=== PATIENT | female | born 1995 | race Caucasian/White ===

== ENCOUNTER 2020-01-29 19:23 | Emergency (ER) | payer BC ==
--- NOTE | 2020-01-29 19:41 | EDM.PDOC ---
ED HPI GENERAL MEDICAL PROBLEM - General Chief Complaint: ENT Problem Stated Complaint: NOSE BLEEDING OFF/ON FOR 4 HRS Time Seen by Provider: 01/29/20 19:35 - History of Present Illness INITIAL COMMENTS - FREE TEXT/NARRATIVE: 24-year-old female presents the emergency room with a nosebleed. This is been going on for the last 4 hours it is on and off. Usually starts on the right side and occasionally comes over to the left side. She tries holding her nose together and holds until it stops bleeding and this helps some however it restarts bleeding. The patient does not have a underlying bleeding disorder and does not have recurrent problems with nosebleeds. She denies significant medical problems at this time.. - Related Data Allergies Allergy/AdvReac Type Severity Reaction Status Date / Time No Known Allergies Allergy Verified 01/29/20 19:32 Home Meds: Home Meds Control 1 tab PO ASDIRECTED 01/29/20 [History] ED ROS ENT - Review of Systems Review Of Systems: See Below Constitutional: Reports: No Symptoms HEENT: Reports: Nosebleed Respiratory: Reports: No Symptoms Cardiovascular: Reports: No Symptoms GI/Abdominal: Reports: No Symptoms ED EXAM, ENT - Physical Exam Exam: See Below Exam Limited By: No Limitations General Appearance: Alert, No Apparent Distress Nose: Normal Inspection, Active Bleeding, Other (The patient had 1 is plastic nose clamps on was holding the bottom of her nose with Kleenex when I arrived. Disassembled all this and had her blow her nose several times into a moist towel. After this and showed her the proper way to hold her nose together and will have her hold her nose for 15 minutes.) Mouth/Throat: Normal Inspection, Normal Gums, Normal Lips, Normal Oropharynx, Other (No active bleeding seen down the back of the throat). No: Bleeding Head: Atraumatic, Normocephalic Neck: Normal Inspection, Supple, Non-Tender, Full Range of Motion. No: Lymphadenopathy (L), Lymphadenopathy (R) Respiratory/Chest: No Respiratory Distress, Lungs Clear, Normal Breath Sounds Cardiovascular: Regular Rate, Rhythm, No Edema, No Murmur Course - Vital Signs Last Recorded V/S: Last Vital Signs Temp 36.2 C 01/29/20 19:37 Pulse 112 H 01/29/20 19:37 Resp 18 01/29/20 19:37 BP 154/93 H 01/29/20 19:37 Pulse Ox 100 01/29/20 19:37 - Orders/Labs/Meds Meds: Medications Discontinued Medications Generic Name Dose Route Start Last Admin Trade Name Latha PRN Reason Stop Dose Admin Oxymetazoline HCl 1 ml 01/29/20 19:47 01/29/20 20:02 Nasal Decongestant [place] SAMI 01/29/20 19:48 Not Given ONETIME ONE Phenylephrine HCl Confirm 01/29/20 20:00 01/29/20 20:01 Camron-Synephrine 0.5% Regular Nasal [place] Administered 01/29/20 20:01 Not Given Dose 15 ml .ROUTE .STK-MED ONE Phenylephrine HCl 2.5 ml 01/29/20 20:01 01/29/20 20:12 [place]-Synephrine 0.5% Regular Nasal [place] NASBOTH 01/29/20 20:02 2.5 ml ONETIME ONE Administration - Re-Assessments/Exams Free Text/Narrative Re-Assessment/Exam: 01/29/20 20:35 Patient is doing much better. And is ready to go home. Initially the patient had her nose cleared of clots with aggressive blowing. She held pressure to the area for 15 minutes bleeding had stopped. Afrin 2 squirts each nostril was applied the patient was observed for another 30 minutes and continues to do well she is insistent on going home at this time. Departure - Departure Time of Disposition: 20:36 Disposition: Home, Self-Care 01 Clinical Impression: Anterior epistaxis - Discharge Information Instructions: Nosebleed, [id number] Referrals: PCP,None [Primary Care Provider] - Forms: ED Department Discharge Additional Instructions: Return to the emergency room with any questions problems or worsening symptoms. Use [place] on the undersurface your nose for the next 24 hours. After 24 hours use Preparation H applied to a Q-tip with a Q-tip in your nostril no deeper than the cotton portion and gently roll on the sides of your nose being careful not to scrub with this. Do this several times a day. Follow-up in the hospital clinic at the end of this week for recheck. [id number] If you have a recurrent nosebleed put pressure to it after thoroughly blowing your nose out and hold it firmly for 15 minutes. Sepsis Event Note (ED) - Focused Exam Vital Signs: Vital Signs Temp Pulse Resp BP Pulse Ox 01/29/20 19:37 36.2 C 112 H 18 154/93 H 100
[2020-01-29] MEDS ORDERED: Oxymetazoline 0.05% Nasal Spray 30 ML Bottle NAS ONE (19:47)
[2020-01-29] MEDS ORDERED: Phenylephrine 0.5% Nasal Spray 15 ML Bot ONE (20:00)
[2020-01-29] MEDS: Phenylephrine 0.5% Nasal Spray 15 ML Bot NASBOTH ONE ×2 (20:02→20:12)
== END 2020-01-29 20:44 | disposition home or self-care (01) ==
LOC: JD.ED 19:23
DX: R04.0 Epistaxis (principal)
CPT/HCPCS: 99283; A9270; 99282